=== PATIENT | female | born 1985 | race Caucasian/White ===

== ENCOUNTER 2017-12-01 09:46 | Inpatient (IN) | payer BC ==
--- NOTE | 2017-12-01 12:04 | HP ---
General Information - Reason for Visit SROM at 0450 this morning - General Information Maternal Age: 32 Grav: 1 Para: 0 SAB: 0 IEA: 0 Estimated Due Date: 11/23/17 Maternal Blood Type and Rh: A Negative - Results this Serology/RPR Result: Non-Reactive Rubella Result: Immune HBsAg Result: Negative HIV Result: Negative GBS Culture Result: Negative Past Medical History Delivery History: See Records - Primip Pertinent Past Medical History: See Records - Anxiety, eczema Pertinent Past Surgical History: None Pertinent Family History: Non-Contributory - Antepartal Records Antepartal Records: Reviewed, Uncomplicated - Anabaptist- no blood transfusions Review of Systems Constitutional: Comfortable CV Complaint: No Respiratory: Shortness of Breath: No Gastrointestinal: No Nausea/Vomiting, Normal Bowel Movement Genitourinary: Leaking Fluid, No Dysuria, No Bleeding Musculoskeletal: No Complaint Neurological: No Headache, No Visual Changes Movement: Normal Exam Allergies/Adverse Reactions: Allergies Latex, Natural Rubber Allergy (Mild, Verified 12/01/17 10:31) Rash T-98.3, P-80, R-17, BP- 123/86, O2-99% - Measurements Height: 5 ft 6 in Weight: 88.904 kg Weight in lbs: 196.510701 Body Mass Index (BMI): 31.6 Pre- Weight: 79.832 kg Weight Gained This : 20 lbs and 0 ozs - Exam Breast: Breast Exam Deferred CVA: No CVA Tenderness Extremities: No Edema Heart: Normal Rhythm/Heart Sounds HEENT: No Significant Findings Lungs: Clear Bilaterally Rectal: Rectal Exam Deferred Reflexes: DTR 2+ Thyroid: No Thyromegaly - Abdominal Exam Abdomen Exam: Non-Tender, Fundal Height Consistent with Dates - Ultrasound/Biophysical Profile Ultrasound Status: Not Done Targeted Exam Findings See L&D Outpatient Visit Provider Note for Findings: N/A - Cervical exam deferred at this time Amniotic Fluid Evaluation: Gross Rupture Bleeding/Discharge: None EFM Findings - External Monitor Findings Baseline Heart Rate: 140 External Monitor Findings: Accelerations Present, No Pattern of Variable or Late Decelerations, Variability Moderate, Baseline Stable Contractions: Irregular, Mild, 45-90 Seconds Assessment/Plan - Assessment 32 year old at 41 1/7 weeks gestation, with prelabor rupture of membranes - Obstetrical Risk Factors Obstetrical Risk Factors: Post-Dates - Plan Plan: Observe Plan Comment: Discussed options with pt, including initiating augmentation of labor vs. expectant management. Pt prefers to wait up to 12 hours post ROM to see if labor starts on its own. - Date/Time of Admission Date of Admission: 12/01/17 Time of Admission: 10:30
--- NOTE | 2017-12-01 13:16 | PTEDU ---
Patient Name: BRIAN MCBRIDE BRIAN MCBRIDE selected video: Never Ever Shake a Baby to view on 12/01/2017 at 1:15:15 PM [place] [facility] [id number]
--- NOTE | 2017-12-01 13:24 | PTEDU ---
Patient Name: BRIAN MCBRIDE BRIAN MCBRIDE selected video: BBOB: Nurturing Your Gorgeous &Growing Baby by to view on 12/01/2017 at 1:23:46 PM from [id number]
[2017-12-01 14:50] LABS: ABS Basophils 0 10^3/ul (0-0.2); ABS Eosinophils 0 10^3/ul (0-0.6); ABS Lymphocytes 1.6 10^3/ul (1.0-4.8); ABS Monocytes 0.7 10^3/ul (0-0.8); ABS Nucleated RBC 0 10^3/ul; Eosinophil % 0.3 % (0-6); Hematocrit 38 % (35-47); Hemoglobin 12.9 g/dl (12.0-16.0); Lymphocyte % 15.5 % (25-47); Mean Corpuscular HGB Conc 34 g/dl (31-36); Mean Corpuscular Hemoglobin 29 pg (27-31); Mean Corpuscular Volume 83 fL (80-97); Mean Platelet Volume 7.8 um3 (7.4-10.4); Nucleated Red Blood Cells % 0; Platelet Count 231 10^3/ul (150-450); Red Blood Count 4.54 10^6/ul (4.00-5.40); Red Cell Distribution Width 14 % (10.5-15); White Blood Count 10.4 10^3/ul (3.5-10.8)
[2017-12-01] MEDS ORDERED: Oxytocin in LR* 20 UNITS/1,000 ML BAG IVPB SCH (15:00)
[2017-12-01] MEDS ORDERED: Calcium Carbonate CHEW TAB* 500 MG (TUMS) ONE (19:35)
[2017-12-01] MEDS: Calcium Carbonate CHEW TAB* 500 MG (TUMS) PO PRN (19:42)
[2017-12-01] MEDS ORDERED: Misoprostol TAB* 100 MCG PO ONE (22:28)
[2017-12-02] MEDS ORDERED: Misoprostol TAB* 100 MCG PO ONE ×2 (02:13→08:07)
[2017-12-02] MEDS ORDERED: Misoprostol TAB* 100 MCG ONE (08:05)
[2017-12-02] MEDS: Calcium Carbonate CHEW TAB* 500 MG (TUMS) PO PRN (08:08)
--- NOTE | 2017-12-02 10:08 | PN ---
Progress Note - Progress Note Date of Service: 12/02/17 Note: S: Pt s/p PROM 12/01/17 at 0450, clear fluid. She had a trial of IV Pitocin yesterday with little change. Overnight had two courses of oral misoprostol 25mcg which resulted in some cramping. In consultation with Dr. Boone this AM 1 dose of 50mcg oral misoprostol given at 0808. At this time pt reports some stronger UCs but still spaced out. Maybe every 5 luis daniel minutes. O: BP 116/80 HR 86 RR 20 T 97.7 FHT: 135bpm. Moderate variability. +Accels. No decels UCs: mild, irregular q 5+ minutes VE: deferred given length of rupture A: IUP at 41-2/7 with PROM not in active labor No evidence of metabolic acidemia P: Plan to recheck VE after final dose of oral misoprostol or sooner PRN onset active labor.
--- NOTE | 2017-12-02 12:38 | PN ---
Progress Note - Progress Note Date of Service: 12/02/17 Note: S: Pt much more uncomfortable with UCs although still spaced out to q 5 min or so. Interested in discussing an epidural with increased discomfort O: BP: 128/85 T: 97.8 FHT: 135bpm. Moderate variability. +Accels. No decels UCs q 4-5, moderate VE: 4cm/80%/vtx -1 +bloody show A: IUP at 41-2/7 in early active labor Prolonged PROM > 24 hours No evidence of metabolic acidemia P: Plan to start IV pitocin. Pt to request epidural when ready
[2017-12-02] MEDS ORDERED: Oxytocin in LR* 20 UNITS/1,000 ML BAG IVPB ONE (12:57)
[2017-12-02] MEDS ORDERED: Oxytocin in LR* 20 UNITS/1,000 ML BAG IVPB SCH (13:00)
[2017-12-02] MEDS ORDERED: OBEPIDURAL* 250 ML EPIDURAL ONE (14:24)
--- NOTE | 2017-12-02 14:25 | PN ---
Progress Note - Progress Note Date of Service: 12/02/17 Note: Quick Note: Pt requesting labor epidural. Anesthesia paged for consult.
--- NOTE | 2017-12-02 15:27 | PN ---
Progress Note - Progress Note Date of Service: 12/02/17 Note: S: Pt comfortable s/p CEI placement. O: VSS, afebrile FHT: 135bpm. Moderate variability. +Accels. No decels. UCs q 2-4 on IV pitocin 4/mu per min VE: 6cm/90%/vtx -1 +Caput A: IUP at 41-2/7 in active labor Prolonged ROM > 24 hours No evidence of metabolic acidemia P: Encouraged rest. Continue IV pitocin. Close monitoring of maternal & status
[2017-12-02] MEDS ORDERED: Sodium Citrate/Citric Acid* 15 ML UDC PO PRN (15:44)
[2017-12-02] MEDS ORDERED: Phenylephrine IV* 40 MCG/ML 10 ML SYRINGE IV PUSH PRN ×2 (15:44)
[2017-12-02] MEDS ORDERED: Famotidine TAB* 20 MG PO PRN (15:44)
[2017-12-02] MEDS ORDERED: OBEPIDURAL* 250 ML EPIDURAL SCH (16:00)
--- NOTE | 2017-12-02 19:09 | PN ---
Progress Note - Progress Note Date of Service: 12/02/17 Note: S: Pt completely comfortable with CEI. O: BP 132/89 HR 93 T 97.7 FHT: 135bpm. Moderate variability. +Accels. No decels UCs q 1-2 so IV pitocin reduced from 12mu/min to 8mu/min VE: 8cm/100%/vtx -1 +Caput A: IUP at 41-2/7 in labor Prolonged ROM > 24 hours No evidence of metabolic acidemia P: Continue IV pitocin. Enc rest.
--- NOTE | 2017-12-02 21:46 | PN ---
Progress Note - Progress Note Date of Service: 12/02/17 Note: S: Pt's epidural pump paused due to error. Starting to feel more discomfort and legs not so heavy. Anesthesia aware and will address when current OR case complete. O: VSS, afebrile FHT: 135bpm. Moderate variability. +Accels. Occ variable decel with UCs, resolves UCs q 2-4 min VE: Ant lip/100%/vtx 0, large caput noted A: IUP at 41-2/7 in active labor Prolonged ROM > 24 hours Category II FHT, doubt metabolic acidemia P: As above anesthesia to come address pump. Anticipate trial of pushing soon
[2017-12-03] MEDS ORDERED: Ondansetron INJ* 2 MG/ML VIAL ONE ×2 (00:11→04:12)
--- NOTE | 2017-12-03 00:15 | PN ---
Progress Note - Progress Note Date of Service: 12/03/17 Note: Quick Note: Pt complete and starting to push as of 12/02/17 2806. Strong maternal efforts. Vtx caput at 0/+1 with pushing effort. Vtx remains about 0 station. FHT: 130bpm. Moderate variability. Some variable decels down to 80bpm, recovers. Category II FHT but doubt metabolic acidemia. Will continue to encourage pushing with close monitoring of status.
[2017-12-03] MEDS ORDERED: ceFOXitin 2 GM IVPREMIX* 2 GM/50 ML BAG ONE (01:53)
--- NOTE | 2017-12-03 01:54 | PN ---
Progress Note - Progress Note Date of Service: 12/03/17 Note: Pt has been pushing effectively x 2 hours with little descent over the last 45 min. Suspect direct OP position. Dr. Boone paged to bedside for evaluation. After evaluating pushing effectiveness and station he recommends pLTCS. Pt and FOB agree. See MD notes.
[2017-12-03] MEDS ORDERED: ceFOXitin 2 GM IVPREMIX* 2 GM/50 ML BAG IVPB ONE (02:03)
[2017-12-03] MEDS ORDERED: Acetaminophen TAB* 325 MG PO PRN (02:04)
[2017-12-03] MEDS ORDERED: oxyCODONE/Acetamin 5/325 MG* TAB PO PRN (02:04)
[2017-12-03] MEDS ORDERED: RHO D Immune Globulin (HUMAN)* 300 MCG = 1,500 I.U. INJ IM ONE (02:04)
[2017-12-03] MEDS ORDERED: Ibuprofen TAB* 600 MG PO PRN (02:04)
[2017-12-03] MEDS ORDERED: Glycerin ADULT SUPP PR PRN (02:04)
[2017-12-03] MEDS ORDERED: Witch Hazel PAD* JAR TOPICAL PRN (02:04)
[2017-12-03] MEDS ORDERED: Lidocaine 2% PF* 10 ML AMP ONE ×2 (02:08→05:55)
[2017-12-03] MEDS ORDERED: Carboprost Tromethamine* 250 MCG INJ ONE (02:10)
[2017-12-03] MEDS ORDERED: KETAMINE HCL* 50 MG/ML 10 ML VIAL ONE (03:33)
[2017-12-03] MEDS ORDERED: fentaNYL* 50 MCG/ML 2 ML VIAL (100 MCG VIAL) ONE ×2 (04:08→04:51)
[2017-12-03] MEDS ORDERED: Propofol* 10 MG/ML 20 ML BTL IV PUSH ONE (04:12)
[2017-12-03] MEDS ORDERED: Succinylcholine* 20 MG/ML 10 ML VIAL ONE (04:12)
[2017-12-03] MEDS ORDERED: Lidocaine 2% PF * 5 ML VIAL ONE (04:12)
[2017-12-03 05:00] LABS: Hematocrit 34 % (35-47); Hemoglobin 11.4 g/dl (12.0-16.0); Mean Corpuscular HGB Conc 34 g/dl (31-36); Mean Corpuscular Hemoglobin 28 pg (27-31); Mean Corpuscular Volume 83 fL (80-97); Mean Platelet Volume 7.6 um3 (7.4-10.4); Platelet Count 210 10^3/ul (150-450); Red Blood Count 4.09 10^6/ul (4.00-5.40); Red Cell Distribution Width 14 % (10.5-15); White Blood Count 21.2 10^3/ul (3.5-10.8)
[2017-12-03 05:01] LABS: Platelet Count 210 10^3/ul (150-450)
[2017-12-03 05:08] LABS: INR 0.86 (0.77-1.02)
[2017-12-03] MEDS ORDERED: HYDROmorphone INJ* 0.5 MG/0.5 ML SYRINGE IV PRN (05:13)
[2017-12-03] MEDS ORDERED: DiMENhydriNATE IV* 50 MG/ML VIAL IV PUSH PRN (05:13)
[2017-12-03] MEDS ORDERED: Acetaminophen IV 1GM/100ML * 1,000 MG/100 ML VIAL IVPB ONE (05:13)
[2017-12-03] MEDS ORDERED: oxyCODONE TAB* 5 MG TAB PO PRN (05:13)
[2017-12-03 05:19] LABS: Schistocytes ABSENT
[2017-12-03] MEDS ORDERED: Naloxone* 0.4 MG/ML 1 ML VIAL IV PUSH PRN (05:34)
[2017-12-03] MEDS ORDERED: Metoclopramide IV* 5 MG/ML 2 ML VIAL IV SLOW PU PRN (05:44)
[2017-12-03] MEDS ORDERED: Metoclopramide IV* 5 MG/ML 2 ML VIAL ONE (05:54)
[2017-12-03] MEDS ORDERED: Ketorolac INJ* 30 MG/ML 1 ML VIAL ONE (05:54)
[2017-12-03] MEDS: Ketorolac INJ* 30 MG/ML 1 ML VIAL IV PUSH SCH ×3 (05:55→17:55)
[2017-12-03] MEDS ORDERED: Morphine PCA ADULT* 5 MG/ML 30 ML PCA SCH (06:00)
--- NOTE | 2017-12-03 13:47 | OP ---
DATE OF OPERATION: 12/03/17 - ROOM #103 DATE OF : 87 SURGEON: Karmen Boone MD AUTOMOTIVE BRAKE SPECIALIST: Jocelyne Andino CNM ANESTHESIOLOGIST: Blossom García MD ANESTHESIA: General endotracheal. PRE-OP DIAGNOSIS: 41 plus 3 weeks' gestation with arrest of descent. POST-OP DIAGNOSIS: 41 plus 3 weeks' gestation with arrest of descent. OPERATIVE PROCEDURE: Primary low-transverse section. INDICATIONS: This patient is a 32-year-old, 1, para 0, who presented nearly 2 days ago with spontaneous rupture of membranes. Over the next 24 to 36 hours, the patient was given medication to induce labor. She then did enter labor and received Pitocin for continued augmentation. She progressed to fully dilated and was using an epidural for anesthesia. She pushed for about 2 hours and during the last hour, there was no significance. At that time, I was consulted by the limb driver. On examination, the head was in a direct occiput posterior position and her pushes appeared to be very strong, but there did not appear to be additional descent of the fetus. We discussed the situation at length and the patient desired to proceed with a section at that time. She was extensively counseled and consent was signed. ESTIMATED BLOOD LOSS: 1200 cc. URINE OUTPUT: 400 cc. IV FLUIDS: 2500 cc lactated Ringer's. MATERIALS TO LAB: Cord blood and cord gases. FINDINGS: The patient's epidural came out during dosing for the surgery and after multiple attempts at placing a new spinal, general anesthesia had to be used. Delivery was productive of an 8-pound 4-ounce male infant with Apgars of 6 and 9. Time of delivery was 0346. Of note, the patient's lower uterine segment sustained significant laceration with delivery of the infant. COMPLICATIONS: None. DESCRIPTION OF PROCEDURE: The risks, benefits, and alternatives were described to the patient and informed consent was obtained. The patient was taken to the operating room with IV running where general endotracheal anesthesia was induced and found to be adequate. The patient was prepped and draped in the normal sterile fashion in the dorsal supine position with leftward tilt. A Pfannenstiel skin incision was made with a scalpel and this was carried down to the underlying fascia sharply. The fascia was then scored in the midline with the scalpel. The incision was extended using Ha scissors. The rectus muscles were dissected off the rectus fascia using blunt and sharp dissection. The rectus muscles were in the midline bluntly. The peritoneum was also entered bluntly. A bladder blade was placed. A bladder flap was created sharply using Metzenbaum scissors. A low transverse uterine incision was made with the scalpel. This was carried down to the amniotic cavity which was productive of clear fluid. The incision was extended with blunt traction. The head was elevated to the level of the incision without difficulty and delivered through the incision. With fundal pressure, the shoulders and body delivered without difficulty. The infant had an excellent tone and cried immediately on delivery. The cord was doubly clamped and cut. The was then handed to the awaiting telecom sales consultant. Cord blood was collected. The placenta then delivered with manual extraction. The uterus was then exteriorized and cleared of all clots and debris. Uterine incision was reapproximated using 0 Polysorb in a running-locked fashion. A second layer of imbricating sutures of 0 Polysorb was also placed with good hemostasis. The posterior cul-de-sac was irrigated with saline. The uterus was then returned to the abdomen, and the incision was reinspected and noted to be hemostatic. The peritoneum was closed with 2-0 chromic in a running fashion. The fascia was closed with 0 Polysorb in a running fashion. Subcutaneous tissues were reapproximated using 2-0 chromic and interrupted sutures. The skin was then closed with 4-0 Monocryl in a subcuticular stitch. Mastisol and Steri-Strips were placed over the incision which was then covered with a sterile bandage. The patient tolerated the procedure well. Sponge, lap, and needle counts were correct x2. [id number]/[facility] #: [id number] [facility]
[2017-12-03] MEDS: oxyCODONE/Acetamin 5/325 MG* TAB PO PRN ×2 (14:51→22:29)
[2017-12-03] MEDS: Simethicone TAB* 80 MG TAB.CHEW PO SCH ×2 (19:24→20:28)
[2017-12-03] MEDS: Docusate CAP* 100 MG PO SCH ×2 (19:25→20:28)
[2017-12-04] MEDS: Ibuprofen TAB* 600 MG PO PRN ×4 (00:42→22:59)
[2017-12-04] MEDS: Ketorolac INJ* 30 MG/ML 1 ML VIAL IV PUSH SCH (00:57)
[2017-12-04] MEDS: Calcium Carbonate CHEW TAB* 500 MG (TUMS) PO PRN (02:50)
[2017-12-04 06:51] LABS: ABS Basophils 0 10^3/ul (0-0.2); ABS Eosinophils 0 10^3/ul (0-0.6); ABS Lymphocytes 0.9 10^3/ul (1.0-4.8); ABS Monocytes 0.5 10^3/ul (0-0.8); ABS Neutrophils 10.8 10^3/ul (1.5-7.7); ABS Nucleated RBC 0 10^3/ul; Eosinophil % 0 % (0-6); Hematocrit 29 % (35-47); Lymphocyte % 7.7 % (25-47); Mean Corpuscular HGB Conc 35 g/dl (31-36); Mean Corpuscular Hemoglobin 29 pg (27-31); Mean Corpuscular Volume 83 fL (80-97); Mean Platelet Volume 7.5 um3 (7.4-10.4); Nucleated Red Blood Cells % 0; Platelet Count 209 10^3/ul (150-450); Red Blood Count 3.48 10^6/ul (4.00-5.40); Red Cell Distribution Width 15 % (10.5-15); White Blood Count 12.3 10^3/ul (3.5-10.8)
[2017-12-04] MEDS: Docusate CAP* 100 MG PO SCH ×3 (08:04→20:01)
[2017-12-04] MEDS: Ferrous Gluconate TAB* 324 MG TAB PO SCH ×2 (08:04→20:01)
[2017-12-04] MEDS: Simethicone TAB* 80 MG TAB.CHEW PO SCH ×4 (08:04→20:01)
[2017-12-04] MEDS: oxyCODONE/Acetamin 5/325 MG* TAB PO PRN (08:04)
[2017-12-04] MEDS: Ondansetron ODT TAB* 4 MG SL PRN ×2 (14:02→20:01)
[2017-12-04] MEDS: Metoclopramide TAB* 10 MG PO PRN ×2 (17:32→23:31)
[2017-12-05] MEDS: Ondansetron ODT TAB* 4 MG SL PRN (02:22)
[2017-12-05] MEDS: Metoclopramide TAB* 10 MG PO PRN (05:43)
[2017-12-05] MEDS: Ibuprofen TAB* 600 MG PO PRN ×2 (05:43→14:52)
[2017-12-05] MEDS: Docusate CAP* 100 MG PO SCH ×3 (09:17→19:52)
[2017-12-05] MEDS: Simethicone TAB* 80 MG TAB.CHEW PO SCH ×4 (09:17→19:52)
[2017-12-05] MEDS: Ferrous Gluconate TAB* 324 MG TAB PO SCH ×2 (09:17→19:52)
[2017-12-06] MEDS: Ibuprofen TAB* 600 MG PO PRN ×2 (00:48→09:12)
[2017-12-06] MEDS: oxyCODONE/Acetamin 5/325 MG* TAB PO PRN ×2 (00:49→05:09)
[2017-12-06 08:52] VITALS: BP 124/73
[2017-12-06] MEDS: Docusate CAP* 100 MG PO SCH (09:12)
[2017-12-06] MEDS: Ferrous Gluconate TAB* 324 MG TAB PO SCH (09:12)
[2017-12-06] MEDS: Simethicone TAB* 80 MG TAB.CHEW PO SCH (09:12)
== END 2017-12-06 13:00 | disposition home or self-care (01) | DRG 540 ==
LOC: MCHOBOUT 09:46 → MCHOB 11:11
PROVIDERS: ADMIT Midwife; ATTEND Midwife
PROC: 3E033VJ Introduction of Other Hormone into Peripheral Vein, Percutaneous Approach (ICD-10-PCS; 2017-12-03)
PROC: 10D00Z1 Extraction of Products of Conception, Low, Open Approach (ICD-10-PCS; principal; 2017-12-03 02:28)
DX: O32.4XX0 Maternal care for high head at term, not applicable or unspecified (principal); O48.0 Post-term pregnancy; O42.12 Full-term premature rupture of membranes, onset of labor more than 24 hours following rupture; O99.344 Other mental disorders complicating childbirth; F41.9 Anxiety disorder, unspecified; Z3A.41 41 weeks gestation of pregnancy; Z37.0 Single live birth
CPT/HCPCS: 36415; 85025; 85027; 85049; 85362; 85384; 85610; 85730; 86850; 86900; 86901; A9270-GY; J0330; J0694; J1885; J2001; J2405; J2704; J2765; J3010; S0191

== ENCOUNTER 2017-12-24 00:59 | Emergency (ER) | payer BC ==
[2017-12-24] MEDS ORDERED: Methylergonovine INJ* 0.2 MG/ML 1ML AMP IM ONE (01:32)
[2017-12-24 01:51] LABS: ABS Basophils 0.1 10^3/ul (0-0.2); ABS Eosinophils 0.2 10^3/ul (0-0.6); ABS Lymphocytes 2.4 10^3/ul (1.0-4.8); ABS Monocytes 0.4 10^3/ul (0-0.8); ABS Neutrophils 2.8 10^3/ul (1.5-7.7); ABS Nucleated RBC 0 10^3/ul; Eosinophil % 2.7 % (0-6); Hematocrit 35 % (35-47); Hemoglobin 11.7 g/dl (12.0-16.0); Lymphocyte % 41.2 % (25-47); Mean Corpuscular HGB Conc 33 g/dl (31-36); Mean Corpuscular Hemoglobin 28 pg (27-31); Mean Corpuscular Volume 83 fL (80-97); Nucleated Red Blood Cells % 0.1; Platelet Count 385 10^3/ul (150-450); Red Blood Count 4.21 10^6/ul (4.00-5.40); Red Cell Distribution Width 14 % (10.5-15); White Blood Count 5.9 10^3/ul (3.5-10.8)
[2017-12-24] MEDS ORDERED: Oxytocin in LR* 20 UNITS/1,000 ML BAG IVPB SCH (02:00)
[2017-12-24 02:06] LABS: INR 0.94 (0.77-1.02)
[2017-12-24 02:11] LABS: EGFR Non-African American 90.1 (>60)
--- NOTE | 2017-12-24 02:55 | ED ---
GI/ HPI - HPI Summary HPI Summary: This is scribe [place] documenting for attending Amos Carlisle MD. Patient is a 32 y/o F w/ c/o heavy vaginal bleeding onsetting today at midnight. Patient claims "a bucket" of blood was collected. In the room, patient is currently bleeding. Cramping is also reported. She states she had a caesarean section three weeks ago during 47 hour labor. Patient is a0. Patient reports mild discomfort since caesarean section with no other Sx except for right side pain onsetting last night. Pain has since resolved. She states she was leaking milk from her right breast while travelling to hospital. Patient reports normal breast feeding. She has been alternating breasts and using a pump. N/V, LOC, dizziness, and pain are denied. Patient states uterus was "torn through" during caesarean section. On triage, nothing is noted to aggravate/alleviate Sx. Home medications and allergies reviewed. I, Dr. Carlisle, personally performed the services described in this documentation as scribed in my presence and it is both accurate and complete. - History of Current Complaint Chief Complaint: EDVaginalBleeding Time Seen by Provider: 12/24/17 01:12 Stated Complaint: HEMORRHAGE Hx Obtained From: Patient Onset/Duration: Started Hours Ago - onset 0000 today Timing: Constant Current Severity: None - pain is denied in room but notes right sided pain yesterday which has since resolved. Pain Intensity: 0 Location of Pain: Other - pain is denied in room but notes right sided pain yesterday which has since resolved. Associated Signs and Symptoms: Positive: Other: - NEGATIVE: LOC, pain. Negative : Dizziness, Nausea, Vomiting Additional Signs & Symptoms: Positive: Vaginal Bleeding, Other: - cramping Aggravating Factor(s): Nothing Alleviating Factor(s): Nothing - Allergy/Home Medications Allergies/Adverse Reactions: Allergies Allergy/AdvReac Type Severity Reaction Status Date / Time Latex, Natural Rubber Allergy Mild Rash Verified 12/01/17 10:31 PMH/Surg Hx/FS Hx/Imm Hx Sensory History: Denies: Hx Legally Blind, Hx Deafness Opthamlomology History: Denies: Hx Legally Blind EENT History: Denies: Hx Deafness - Surgical History Surgery Procedure, Year, and Place: section, 12/10/17 Infectious Disease History: No Infectious Disease History: Denies: Traveled Outside the [place] in Last 30 Days - Family History Known Family History: Negative: Blood Disorder - Social History Alcohol Use: None Substance Use Type: Reports: None Smoking Status (MU): Never Smoked Tobacco Have You Smoked in the Last Year: No Review of Systems Negative: Vomiting, Nausea Positive: flank pain - right sided, onset yesterday, since resolved , other - POSITIVE: vaginal bleeding, cramping . Negative: pain Neurological: Other - NEGATIVE: dizziness Negative: Syncope All Other Systems Reviewed And Are Negative: Yes Physical Exam - Summary Physical Exam Summary: VITAL SIGNS: Reviewed. GENERAL: Patient is a well-developed and nourished female who is lying comfortable in the stretcher. Patient is not in any acute respiratory distress. Patient is anxious-appearing. HEAD AND FACE: No signs of trauma. No ecchymosis, hematomas or skull depressions. No sinus tenderness. EYES: PERRLA, EOMI x 2, No injected conjunctiva, no nystagmus. EARS: Hearing grossly intact. Ear canals and tympanic membranes are within normal limits. MOUTH: Oropharynx within normal limits. NECK: Supple, trachea is midline, no adenopathy, no JVD, no carotid bruit, no c- spine tenderness, neck with full ROM. CHEST: Symmetric, no tenderness at palpation LUNGS: Clear to auscultation bilaterally. No wheezing or crackles. CVS: Regular rate and rhythm, S1 and S2 present, no murmurs or gallops appreciated. ABDOMEN: Soft, non-tender. No signs of distention. No rebound no guarding, and no masses palpated. Bowel sounds are normal. EXTREMITIES: FROM in all major joints, no edema, no cyanosis or clubbing. NEURO: Alert and oriented x 3. No acute neurological deficits. Speech is normal and follows commands. SKIN: Dry and warm PELVIC EXAM: Pelvic exam was done in presence of female bargeman. Patient had moderate vaginal bleeding, clots were noted in vagina. Clots were evacuated by Dr. Carlisle. Cervix: external os is open. Uterus: 14-16 weeks in size, non-tender. Adnexa: normal. Triage Information Reviewed: Yes Vital Signs On Initial Exam: Initial Vitals Temp Pulse Resp BP Pulse Ox 96.9 F 119 18 159/89 98 12/24/17 01:02 12/24/17 01:02 12/24/17 01:02 12/24/17 01:02 12/24/17 01:02 Vital Signs Reviewed: Yes Diagnostics - Vital Signs Vital Signs Temp Pulse Resp BP Pulse Ox 12/24/17 02:45 81 153/102 99 12/24/17 02:15 92 132/83 100 12/24/17 02:00 95 98 12/24/17 01:47 101 116/69 99 12/24/17 01:17 104 98 12/24/17 01:15 105 130/94 98 12/24/17 01:02 96.9 F 119 18 159/89 98 - Laboratory Lab Results: Lab Results 12/24/17 12/24/17 12/24/17 Range/Units 01:44 01:44 01:44 WBC 5.9 (3.5-10.8) 10^3/ul RBC 4.21 (4.00-5.40) 10^6/ul Hgb 11.7 L (12.0-16.0) g/dl Hct 35 (35-47) % MCV 83 (80-97) fL MCH 28 (27-31) pg MCHC 33 (31-36) g/dl RDW 14 (10.5-15) % Plt Count 385 (150-450) 10^3/ul MPV 7.0 L (7.4-10.4) um3 Neut % (Auto) 47.7 (38-83) % Lymph % (Auto) 41.2 (25-47) % Prentiss % (Auto) 7.2 H (0-7) % Eos % (Auto) 2.7 (0-6) % Baso % (Auto) 1.2 (0-2) % Absolute Neuts (auto) 2.8 (1.5-7.7) 10^3/ul Absolute Lymphs (auto) 2.4 (1.0-4.8) 10^3/ul Absolute Monos (auto) 0.4 (0-0.8) 10^3/ul Absolute Eos (auto) 0.2 (0-0.6) 10^3/ul Absolute Basos (auto) 0.1 (0-0.2) 10^3/ul Absolute Nucleated RBC 0 10^3/ul Nucleated RBC % 0.1 INR (Anticoag Therapy) 0.94 (0.77-1.02) APTT 27.3 (26.0-36.3) seconds Sodium 138 (135-145) mmol/L Potassium 3.7 (3.5-5.0) mmol/L Chloride 107 (101-111) mmol/L Carbon Dioxide 21 L (22-32) mmol/L Anion Gap 10 (2-11) mmol/L BUN 14 (6-24) mg/dL Creatinine 0.75 (0.51-0.95) mg/dL Est GFR ( Amer) 109.1 (>60) Est GFR (Non-Af Amer) 90.1 (>60) BUN/Creatinine Ratio 18.7 (8-20) Glucose 111 H (70-100) mg/dL Calcium 9.8 (8.6-10.3) mg/dL Total Bilirubin 0.40 (0.2-1.0) mg/dL AST 13 (13-39) U/L ALT 12 (7-52) U/L Alkaline Phosphatase 77 (34-104) U/L Total Protein 6.6 (6.4-8.9) g/dL Albumin 3.9 (3.2-5.2) g/dL Globulin 2.7 (2-4) g/dL Albumin/Globulin Ratio 1.4 (1-3) Blood Type Antibody Screen 12/24/17 Range/Units 01:44 WBC (3.5-10.8) 10^3/ul RBC (4.00-5.40) 10^6/ul Hgb (12.0-16.0) g/dl Hct (35-47) % MCV (80-97) fL MCH (27-31) pg MCHC (31-36) g/dl RDW (10.5-15) % Plt Count (150-450) 10^3/ul MPV (7.4-10.4) um3 Neut % (Auto) (38-83) % Lymph % (Auto) (25-47) % Prentiss % (Auto) (0-7) % Eos % (Auto) (0-6) % Baso % (Auto) (0-2) % Absolute Neuts (auto) (1.5-7.7) 10^3/ul Absolute Lymphs (auto) (1.0-4.8) 10^3/ul Absolute Monos (auto) (0-0.8) 10^3/ul Absolute Eos (auto) (0-0.6) 10^3/ul Absolute Basos (auto) (0-0.2) 10^3/ul Absolute Nucleated RBC 10^3/ul Nucleated RBC % INR (Anticoag Therapy) (0.77-1.02) APTT (26.0-36.3) seconds Sodium (135-145) mmol/L Potassium (3.5-5.0) mmol/L Chloride (101-111) mmol/L Carbon Dioxide (22-32) mmol/L Anion Gap (2-11) mmol/L BUN (6-24) mg/dL Creatinine (0.51-0.95) mg/dL Est GFR ( Amer) (>60) Est GFR (Non-Af Amer) (>60) BUN/Creatinine Ratio (8-20) Glucose (70-100) mg/dL Calcium (8.6-10.3) mg/dL Total Bilirubin (0.2-1.0) mg/dL AST (13-39) U/L ALT (7-52) U/L Alkaline Phosphatase (34-104) U/L Total Protein (6.4-8.9) g/dL Albumin (3.2-5.2) g/dL Globulin (2-4) g/dL Albumin/Globulin Ratio (1-3) Blood Type A Negative Antibody Screen Negative Result Diagrams: 12/24/17 01:44 12/24/17 01:44 Lab Statement: Any lab studies that have been ordered have been reviewed, and results considered in the medical decision making process. Re-Evaluation - Re-Evaluation Second Eval Re-Evaluation Time: 02:48 Change: Improved Comment: Patient's bleeding has stopped. She will be discharged to home and follow up with Dr. Boone, who performed the caesarean section. Patient was agreeable with this plan. First Eval Re-Evaluation Time: 01:42 Comment: Discussed consult with Dr. Kim and plan of treatment with patient. GIGU Course/Dx - Course Assessment/Plan: Patient is a 32 y/o F w/ c/o heavy vaginal bleeding onsetting today at midnight. Patient claims "a bucket" of blood was collected. In the room , patient is currently bleeding. Cramping is also reported. She states she had a caesarean section three weeks ago during 47 hour labor. Patient is a0. Patient reports mild discomfort since caesarean section with no other Sx except for right side pain onsetting last night. Pain has since resolved. She states she was leaking milk from her right breast while travelling to hospital. Patient reports normal breast feeding. She has been alternating breasts and using a pump. N/V, LOC, dizziness, and pain are denied. Patient states uterus was "torn through" during caesarean section. On triage, nothing is noted to aggravate/alleviate Sx. Pelvic exam was done in presence of female bargeman. Patient had moderate vaginal bleeding, clots were noted in vagina. Clots were evacuated by Dr. Carlisle. Cervix: external os is open. Uterus: 14-16 weeks in size , non-tender. Adnexa: normal. Patient was anxious appearing, but no other abnormal findings noted. Dr. Kim was consulted on patient's case and he is agreeable with Dr. Carlisle's plan of treatment for the patient. During ED course, patient was given oxytocin, 20 units in 1000 mls @ 250 mls/hr IVPD .PER RATE STU ; Methylergonovine Maleate, 0.2 mg IM ED ONCE; a manual breast pump was also provided. Labs showed carbon dioxide 21 L, glucose 111 H, Hgb 11.7 L, MPV 7.0 L. Patient was re-evaluated at 0248. Patient's bleeding had stopped. She was diagnosed with subinvolution of uterus. Patient will be discharged to home and follow up with Dr. Boone, who performed the caesarean section, in 1-2 days. Methylergonovine TAB* [Methergine TAB*] 0.2 mg PO TID #10 tab was prescribed. Patient is agreeable with follow-up plan and all questions were answered to satisfaction. - Diagnoses Provider Diagnoses: Subinvolution of uterus - Physician Notifications Discussed Care Of Patient With: Marlon Kim Time Discussed With Above Provider: 01:39 Instructed by Provider To: Other - Dr. Kim was consulted on patient's case. Dr. Kim is agreeable with Dr. Carlisle's plan of treatment for the patient. Discharge - Sign-Out/Discharge Documenting (check all that apply): Patient Departure - discharge - Discharge Plan Condition: Stable Disposition: HOME Prescriptions: Methylergonovine TAB* [Methergine TAB*] 0.2 mg PO TID #10 tab Patient Education Materials: Bleeding (ED) Referrals: Karmen Boone MD [Medical Doctor] - 2 Days Additional Instructions: Follow up with Dr. Boone in 1-2 days. Return to ED for any changing or worsening symptoms.
[2017-12-24 03:31] VITALS: BP 125/86
--- NOTE | 2017-12-24 22:56 | ED ---
Progress - Progress Note Progress Note: 32 yo F seen on 12/24/17am for vaginal bleeding post , calls and states that she has called multiple pharmacies and has been unable to obtain methergine as prescribed by Dr. Carlisle. Pt states she called [facility] (Dr. Boone delivered her) and they stated that they do want her to take the methergine, and pt has an appt with Dr. Boone on 12/25/17 at 0900. Pt states that she does not have any pain, and states that she is wearing "like a Depends " for the bleeding, and that when she wipes herself, the bleeding is "like a period". She denies GUERRA, dizziness, abd pain, chest pain, fever. I spoke with Charleen in pharmacy, and she stated that [facility] [place]ine, and states that I may write a paper RX for pt for #12 tabs (not #10 as prescribed, because methergine comes in packages of 12), and the [facility] outpatient pharmacy will be able to dispense it to patient. I spoke with pt, verified name and , and advised her to go to [facility] [place], and to take one tab as soon as she obtained the RX, and then one tab 8 hrs later, and then one in the am prior to seeing Dr. Boone. I advised her to return to the ED if she had any new or worsening symptoms. 12/24/17, 12:00 Genet trujillo MD Re-Evaluation - Re-Evaluation First Eval Re-Evaluation Time: 01:42 Change: Improved Comment: Discussed consult with Dr. Kim and plan of treatment with patient. Second Eval Re-Evaluation Time: 02:48 Change: Improved Comment: Patient's bleeding has stopped. She will be discharged to home and follow up with Dr. Boone, who performed the caesarean section. Patient was agreeable with this plan. Course/Dx - Diagnoses Provider Diagnoses: Subinvolution of uterus - Provider Notifications Time Discussed With Above Provider: 01:39 Instructed by Provider To: Other - Dr. Kim was consulted on patient's case. Dr. Kim is agreeable with Dr. Carlisle's plan of treatment for the patient. Discharge - Sign-Out/Discharge Documenting (check all that apply): Post-Discharge Follow Up - RX for methergine per Dr. Carlisle's dc inst sent to [facility] [place] [facility] - Discharge Plan Condition: Stable Disposition: HOME Prescriptions: Methylergonovine TAB* [Methergine TAB*] 0.2 mg PO TID #10 tab Patient Education Materials: Bleeding (ED) Referrals: Karmen Boone MD [Medical Doctor] - 2 Days Additional Instructions: Follow up with Dr. Boone in 1-2 days. Return to ED for any changing or worsening symptoms. - Billing Disposition and Condition Condition: STABLE Disposition: Home
== END 2017-12-24 03:31 | disposition home or self-care (01) ==
LOC: ED 00:59
DX: N85.3 Subinvolution of uterus (principal); Z91.040 Latex allergy status
CPT/HCPCS: 36415; 80053; 85025; 85610; 85730; 86850; 86900; 86901; 96372; 99283; J2210

== ENCOUNTER 2017-12-27 11:02 | Emergency (ER) | payer BC ==
--- NOTE | 2017-12-27 11:50 | ED ---
GI/ HPI - HPI Summary HPI Summary: This is scribe Brandon Bermudez documenting for attending Dr. Jericho Cortes MD. This patient is a 32 year old F [facility] a male with a chief complaint of urinating with blood and large clots since yesterday. Patient denies dysuria or pelvic/pubic pain. Pt had a C section on December 03, performed by Dr. Boone, because her labor was taking too long. Pt came into the ED 4 days ago and was given Methergine. Pt followed up with another physician who said she should be fine, didnt receive an US. The bleeding began again yesterday and she decided to come in again. RX Methergine I, Dr. Cortes, personally performed the services described in this documentation as scribed in my presence and it is both accurate and complete. - History of Current Complaint Chief Complaint: EDVaginalBleeding Time Seen by Provider: 12/27/17 11:34 Stated Complaint: POST OP VAGINAL BLEEDING Hx Obtained From: Patient Onset/Duration: Started Days Ago - yesterday Timing: Constant Severity: Moderate Current Severity: Moderate Vaginal Bleeding Description: Bright Red, Clots Pain Intensity: 0 Pain Characteristics: Other: - no pain Associated Signs and Symptoms: Negative: Dysuria, Flank Pain - Allergy/Home Medications Allergies/Adverse Reactions: Allergies Allergy/AdvReac Type Severity Reaction Status Date / Time Latex, Natural Rubber Allergy Mild Rash Verified 12/27/17 11:21 PMH/Surg Hx/FS Hx/Imm Hx History: Denies: Hx Dialysis Sensory History: Denies: Hx Legally Blind, Hx Deafness Opthamlomology History: Denies: Hx Legally Blind - Surgical History Surgery Procedure, Year, and Place: section, 12/10/17 Infectious Disease History: No Infectious Disease History: Denies: Traveled Outside the [place] in Last 30 Days - Family History Known Family History: Negative: Blood Disorder - Social History Alcohol Use: None Substance Use Type: Reports: None Smoking Status (MU): Never Smoked Tobacco Have You Smoked in the Last Year: No Review of Systems Negative: Fever Negative: Abdominal Pain Positive: hematuria. Negative: dysuria, flank pain, pain All Other Systems Reviewed And Are Negative: Yes Physical Exam - Summary Physical Exam Summary: Appearance: The patient is well-nourished in no acute distress and in no acute pain. Skin: The skin is warm and dry and skin color reflects adequate perfusion. HEENT: The head is normocephalic and atraumatic. The pupils are equal and reactive. The conjunctivae are clear and without drainage. Nares are patent and without drainage. Mouth reveals moist mucous membranes and the throat is without erythema and exudate. The external ears are intact. The ear canals are patent and without drainage. The tympanic membranes are intact. Neck: The neck is supple with full range of motion and non-tender. There are no carotid bruits. There is no neck vein distension. Respiratory: Chest is non-tender. Lungs are clear to auscultation and breath sounds are symmetrical and equal. Cardiovascular: Heart is regular rate and rhythm. There is no murmur or rub auscultated. There is no peripheral edema and pulses are symmetrical and equal. Abdomen: The abdomen is soft and non-tender. There are normal bowel sounds heard in all four quadrants and there is no organomegaly palpated. Musculoskeletal: There is no back tenderness noted. Extremities are non-tender with full range of motion. There is good capillary refill. There is no peripheral edema or calf tenderness elicited. Neurological: Patient is alert and oriented to person, place and time. The patient has symmetrical motor strength in all four extremities. Cranial nerves are grossly intact. Deep tendon reflexes are symmetrical and equal in all four extremities. Psychiatric: The patient has an appropriate affect and does not exhibit any anxiety or depression. Triage Information Reviewed: Yes Vital Signs On Initial Exam: Initial Vitals Temp Pulse Resp BP Pulse Ox 98 F 87 18 130/68 99 12/27/17 11:16 12/27/17 11:16 12/27/17 11:16 12/27/17 11:16 12/27/17 11:16 Vital Signs Reviewed: Yes Diagnostics - Vital Signs Vital Signs Temp Pulse Resp BP Pulse Ox 12/27/17 11:16 98 F 87 18 130/68 99 - Laboratory Result Diagrams: 12/27/17 11:58 12/27/17 11:58 Lab Statement: Any lab studies that have been ordered have been reviewed, and results considered in the medical decision making process. - Ultrasound No standard instances Ultrasound Interpretation Completed By: Radiologist - NO FINDINGS TO SUGGEST SIGNIFICANT RETAINED PRODUCTS. SUSPECT SMALL PERIUTERINE HEMATOMA POST C- SECTION ED Physician has reviewed this report GIGU Course/Dx - Course Course Of Treatment: Ms. Jasso had the sudden onset of some vaginal bleeding about a month after a . She was seen here in the emergency department a couple days ago and wasn't bleeding very much. She was sent for follow-up with her OB doc. She was reassured but then today again past blood and clots suddenly. She has no pain. Ultrasound was obtained which showed no retained products and possible small hematoma around the site. She has not dropped her H&H. I spoke with Dr. Osuna who felt that she was safe to go home and follow up with Dr. Boone in the office. - Diagnoses Provider Diagnoses: bleeding - Physician Notifications Discussed Care Of Patient With: Marilee Osuna Time Discussed With Above Provider: 13:25 - Stop Methergine, follow up with with Dr. Boone Discharge - Sign-Out/Discharge Documenting (check all that apply): Patient Departure - Discharge - Discharge Plan Condition: Stable Disposition: HOME Patient Education Materials: Bleeding (ED) Referrals: Karmen Boone MD [Medical Doctor] - 3 Days Additional Instructions: Stop taking Methergine RETURN TO THE EMERGENCY DEPARTMENT FOR CHANGING OR WORSENING SYMPTOMS - Billing Disposition and Condition Condition: STABLE Disposition: Home
[2017-12-27 12:18] LABS: ABS Basophils 0.1 10^3/ul (0-0.2); ABS Eosinophils 0.3 10^3/ul (0-0.6); ABS Lymphocytes 1.9 10^3/ul (1.0-4.8); ABS Monocytes 0.3 10^3/ul (0-0.8); ABS Neutrophils 3.5 10^3/ul (1.5-7.7); ABS Nucleated RBC 0 10^3/ul; Eosinophil % 5.1 % (0-6); Hematocrit 34 % (35-47); Hemoglobin 11.4 g/dl (12.0-16.0); Lymphocyte % 30.6 % (25-47); Mean Corpuscular HGB Conc 33 g/dl (31-36); Mean Corpuscular Hemoglobin 28 pg (27-31); Mean Corpuscular Volume 83 fL (80-97); Mean Platelet Volume 7.4 um3 (7.4-10.4); Nucleated Red Blood Cells % 0.1; Platelet Count 305 10^3/ul (150-450); Red Blood Count 4.16 10^6/ul (4.00-5.40); Red Cell Distribution Width 14 % (10.5-15)
[2017-12-27 12:22] LABS: INR 0.99 (0.77-1.02)
[2017-12-27 12:32] LABS: EGFR Non-African American 83.7 (>60)
--- NOTE | 2017-12-27 12:53 | RAD ---
INDICATION: hemorrhage COMPARISON: None TECHNIQUE: Longitudinal and transverse transvaginal scans of the pelvis were obtained. FINDINGS: Uterus: The uterus is normal in size. There are no focal masses. There is postsurgical change along the anterior lower uterine segment consistent with recent The uterus measures 9.7 x 5.6 was 7.1 cm. Endometrial thickness: The endometrial thickness is measured at 1.3 cm. . Free fluid: There is no significant free fluid . Ovaries: The ovaries are normal in size. The right ovary measures 5.0 x 2.6 x 3.1 cm. The left ovary measures 3.6 x 2.4 x 2.2 cm. . Doppler interrogation demonstrates flow to each ovary. Other: There may be a small periuterine hematoma near the incision site IMPRESSION: NO FINDINGS TO SUGGEST SIGNIFICANT RETAINED PRODUCTS. SUSPECT SMALL PERIUTERINE HEMATOMA POST
[2017-12-27 13:59] VITALS: BP 125/80
== END 2017-12-27 13:59 | disposition home or self-care (01) ==
LOC: ED 11:02
DX: O72.1 Other immediate postpartum hemorrhage (principal)
CPT/HCPCS: 36415; 76830; 80053; 84702; 85025; 85610; 86850; 86900; 86901; 99283